=== PATIENT | male | born 1965 | race African-American/Black ===

== ENCOUNTER 2018-05-19 17:25 | Observation (INO) ==
[2018-05-19 18:52] LABS: Basophils % 0.4 % (0.0-0.8); Eosinophils # 0.1 10*3/uL (0.0-0.87); Eosinophils % 0.9 % (0.00-10.9); Hematocrit 36.7 VOL% (42.0-52.0); Hemoglobin 11.6 GM/DL (14.0-18.0); Immature Granulocytes % 0.4 %; Immature Granulocytes Absolute 0.02 #; Lymphocytes # 2.6 10*3/uL (1.4-4.0); Lymphocytes % 47.1 % (21.2-54.2); Mean Corpuscular HGB Conc 31.6 GM/DL (32-36); Mean Corpuscular Hemoglobin 28 PG (27-34); Mean Corpuscular Volume 87.6 FL (87-102); Mean Platelet Volume 10.4 FL (9.6-12.0); Monocytes # 0.6 10*3/uL (0.11-0.8); Monocytes % 9.8 % (1.7-12.7); Neutrophils # 2.3 10*3/uL (1.4-7.4); Neutrophils % 41.4 % (38.7-73.9); Platelet Count 249 T/CUMM (130-400); Red Blood Count 4.19 MC/CUMM (3.8-5.5); Red Cell Distribution Width 14.2 % (9.3-17.3); White Blood Count 5.6 T/CUMM (4-12)
[2018-05-19] MEDS ORDERED: ACETAMINOPHEN 500 MG TABLET PO STA (20:37)
[2018-05-19 20:42] LABS: Alanine Aminotransferase 44 U/L (16-61); Albumin 3.5 G/DL (3.4-5.0); Alkaline Phosphatase 81 U/L (45-117); Aspartate Amino Transferase 20 U/L (0-37); Bilirubin,Total < 0.39 MG/DL (0.2-1.0); Blood Urea Nitrogen 18 MG/DL (7-18); Calcium 8.4 MG/DL (8.5-10.1); Glucose 147 MG/DL (74-106); Osmolality,Calculated 285.3 MOS/KG (273-304); Potassium 3.7 MMOL/L (3.5-5.1); Sodium 141 MMOL/L (136-145); Total Protein 7.3 G/DL (6.4-8.3)
[2018-05-19] MEDS ORDERED: DEXTROSE 50% 25 GM/50 ML VIAL IV PRN (22:15)
[2018-05-19] MEDS ORDERED: GLUCAGON 1 MG VIAL IM PRN (22:15)
[2018-05-19] MEDS ORDERED: MAGNESIUM SULF RIDER 2 GM in PREMIX 1 EACH IV PRN (22:15)
[2018-05-19] MEDS ORDERED: MAGNESIUM SULF RIDER 4 GM in PREMIX 1 EACH IV PRN (22:15)
[2018-05-19] MEDS ORDERED: ONDANSETRON 4 MG/2 ML VIAL IV PRN (22:15)
[2018-05-19] MEDS: DEXTROSE 5% NACL 0.9% 1,000 ML IV SCH (23:53)
[2018-05-20] MEDS: DEXTROSE 5% NACL 0.9% 1,000 ML IV SCH ×2 (07:44→16:55)
[2018-05-20] MEDS ORDERED: NITROGLYCERIN SL 0.4 MG TABLET SL PRN (10:09)
[2018-05-20] MEDS ORDERED: ALUM/MAG/SIMETH/LIDO VISC 1:1 30 ML BOTTLE PO ONE (10:10)
[2018-05-20] MEDS: ASPIRIN EC 81 MG TABLET PO SCH (11:03)
[2018-05-20] MEDS: LISINOPRIL 10 MG TABLET PO SCH (11:03)
[2018-05-20] MEDS: TICAGRELOR 90 MG TABLET PO SCH ×2 (11:03→21:29)
[2018-05-20] MEDS: FAMOTIDINE 20 MG TABLET PO SCH ×2 (11:03→21:29)
[2018-05-20] MEDS ORDERED: DIAZEPAM 5 MG TABLET PO ONE (13:12)
[2018-05-20] MEDS ORDERED: POTASSIUM CHLORIDE RIDER 10 MEQ in PREMIX 1 EACH IV PRN (13:12)
[2018-05-20] MEDS ORDERED: MAGNESIUM SULF RIDER 2 GM in PREMIX 1 EACH IV PRN (13:12)
[2018-05-20] MEDS ORDERED: diphenhydrAMINE CAP 25 MG CAPSULE PO ONE (13:12)
[2018-05-20] MEDS ORDERED: diphenhydrAMINE CAP 50 MG CAPSULE ONE (13:17)
[2018-05-20] MEDS ORDERED: ENOXAPARIN 40 MG/0.4 ML SYRINGE SUBCUT ONE (13:33)
[2018-05-20] MEDS ORDERED: LIDOCAINE 1% 20 ML VIAL ONE (13:53)
[2018-05-20] MEDS ORDERED: MIDAZOLAM 2 MG/2 ML VIAL ONE (13:54)
[2018-05-20] MEDS ORDERED: fentaNYL 100 MCG/2 ML VIAL ONE (13:54)
[2018-05-20] MEDS ORDERED: HEPARIN 5,000 UNIT/1 ML VIAL ONE (14:03)
[2018-05-20] MEDS: GABAPENTIN 300 MG CAPSULE PO SCH ×2 (15:41→21:29)
[2018-05-20] MEDS: HYOSCYAMINE 0.125 MG TABLET SL SCH ×2 (15:41→21:29)
[2018-05-20] MEDS: ACETAMINOPHEN 325 MG TABLET PO SCH ×2 (15:41→21:29)
[2018-05-20] MEDS: PANTOPRAZOLE 20 MG TABLET PO SCH (15:41)
[2018-05-20] MEDS ORDERED: SERTRALINE 25 MG TABLET PO SCH (21:00)
[2018-05-20] MEDS ORDERED: ATORVASTATIN 40 MG TABLET PO SCH (21:00)
[2018-05-20] MEDS ORDERED: SERTRALINE 50 MG TABLET PO SCH (21:00)
[2018-05-20] MEDS: TOPIRAMATE 25 MG TABLET PO SCH (21:29)
[2018-05-20] MEDS: CARVEDILOL 3.125 MG TABLET PO SCH (21:29)
[2018-05-21] MEDS: DEXTROSE 5% NACL 0.9% 1,000 ML IV SCH ×2 (01:57→06:47)
[2018-05-21 05:18] LABS: Basophils % 0.2 % (0.0-0.8); Eosinophils % 0.4 % (0.00-10.9); Immature Granulocytes % 0.4 %; Immature Granulocytes Absolute 0.03 #; Lymphocytes # 2.3 10*3/uL (1.4-4.0); Lymphocytes % 27.4 % (21.2-54.2); Mean Corpuscular HGB Conc 30.6 GM/DL (32-36); Mean Corpuscular Hemoglobin 27 PG (27-34); Mean Corpuscular Volume 88.5 FL (87-102); Mean Platelet Volume 10.7 FL (9.6-12.0); Monocytes # 0.7 10*3/uL (0.11-0.8); Neutrophils # 5.4 10*3/uL (1.4-7.4); Neutrophils % 63.6 % (38.7-73.9); Platelet Count 231 T/CUMM (130-400); Red Blood Count 4.07 MC/CUMM (3.8-5.5); Red Cell Distribution Width 14.4 % (9.3-17.3); White Blood Count 8.5 T/CUMM (4-12)
[2018-05-21] MEDS: HYOSCYAMINE 0.125 MG TABLET SL SCH (08:33)
[2018-05-21] MEDS: ASPIRIN EC 81 MG TABLET PO SCH (08:33)
[2018-05-21] MEDS: LISINOPRIL 10 MG TABLET PO SCH (08:33)
[2018-05-21] MEDS: PANTOPRAZOLE 20 MG TABLET PO SCH (08:33)
[2018-05-21] MEDS: TOPIRAMATE 25 MG TABLET PO SCH (08:33)
[2018-05-21] MEDS: CARVEDILOL 3.125 MG TABLET PO SCH (08:33)
[2018-05-21] MEDS: GABAPENTIN 300 MG CAPSULE PO SCH (08:33)
[2018-05-21] MEDS: TICAGRELOR 90 MG TABLET PO SCH (08:34)
[2018-05-21] MEDS: FAMOTIDINE 20 MG TABLET PO SCH (08:37)
[2018-05-21] MEDS: ACETAMINOPHEN 325 MG TABLET PO SCH (08:37)
[2018-05-21 12:29] VITALS: BP 140/82
== END 2018-05-21 16:31 | disposition home or self-care (01) ==
LOC: N.TELES 17:25 → N.ED 17:25 → N.TELES 23:10
PROVIDERS: ADMIT Family Medicine; ATTEND Family Medicine
PROC: CLCCHCL (ICD-10-PCS; 2018-05-20 13:45)

== ENCOUNTER 2018-08-20 17:25 | Observation (INO) ==
[2018-08-20] MEDS ORDERED: ASPIRIN 325 MG TABLET PO STA (18:09)
[2018-08-20] MEDS ORDERED: ONDANSETRON ODT 4 MG TABLET PO STA (18:09)
[2018-08-20 18:31] LABS: Basophils % 0.6 % (0.0-0.8); Eosinophils # 0.1 10*3/uL (0.0-0.87); Eosinophils % 1.3 % (0.00-10.9); Hematocrit 37.5 VOL% (42.0-52.0); Hemoglobin 11.7 GM/DL (14.0-18.0); Immature Granulocytes % 0.4 %; Immature Granulocytes Absolute 0.02 #; Lymphocytes # 2.5 10*3/uL (1.4-4.0); Lymphocytes % 52.4 % (21.2-54.2); Mean Corpuscular HGB Conc 31.2 GM/DL (32-36); Mean Corpuscular Hemoglobin 28 PG (27-34); Mean Corpuscular Volume 88.7 FL (87-102); Monocytes # 0.4 10*3/uL (0.11-0.8); Monocytes % 8.6 % (1.7-12.7); Neutrophils # 1.7 10*3/uL (1.4-7.4); Neutrophils % 36.7 % (38.7-73.9); Platelet Count 263 T/CUMM (130-400); Red Blood Count 4.23 MC/CUMM (3.8-5.5); Red Cell Distribution Width 14.4 % (9.3-17.3); White Blood Count 4.8 T/CUMM (4-12)
[2018-08-20 18:51] LABS: INR 0.9; Partial Thromboplastin Time 25.9 SECS (0-40)
[2018-08-20 18:56] LABS: Alanine Aminotransferase 43 U/L (16-61); Alkaline Phosphatase 84 U/L (45-117); Aspartate Amino Transferase 22 U/L (0-37); Bilirubin,Total < 0.39 MG/DL (0.2-1.0); Blood Urea Nitrogen 18 MG/DL (7-18); Calcium 8.4 MG/DL (8.5-10.1); Glucose 125 MG/DL (74-106); Osmolality,Calculated 283.3 MOS/KG (273-304); Potassium 3.7 MMOL/L (3.5-5.1); Sodium 141 MMOL/L (136-145); Total Protein 7.4 G/DL (6.4-8.3)
[2018-08-20 19:01] LABS: Lymphocytes 61 % (20-55); Segmented Neutrophils 35 % (50-85); Total Cells Counted 100
[2018-08-20 19:02] LABS: Hypochromasia Slight; Microcytosis Slight; Platelet Estimate Normal
[2018-08-20 19:38] LABS: Barbiturates Screen,Urine Negative (Negative); Benzodiazepines Screen,Urine Negative (Negative); Cannabinoid Screen,Urine Negative (Negative); Opiate Screen,Urine Negative (Negative); Phencyclidine Screen,Urine Negative (Negative)
[2018-08-20] MEDS ORDERED: ATORVASTATIN 40 MG TABLET PO SCH (22:41)
[2018-08-20] MEDS ORDERED: SERTRALINE 50 MG TABLET PO SCH (22:41)
[2018-08-21] MEDS: GABAPENTIN 300 MG CAPSULE PO SCH ×2 (00:24→11:51)
[2018-08-21] MEDS: TICAGRELOR 90 MG TABLET PO SCH ×2 (00:24→11:52)
[2018-08-21] MEDS: FAMOTIDINE 20 MG TABLET PO SCH ×2 (00:25→11:50)
[2018-08-21] MEDS: TOPIRAMATE 25 MG TABLET PO SCH ×2 (00:25→11:51)
[2018-08-21 08:53] VITALS: BP 128/81
[2018-08-21] MEDS ORDERED: ASPIRIN EC 81 MG TABLET PO SCH (09:00)
[2018-08-21] MEDS ORDERED: LISINOPRIL 10 MG TABLET PO SCH (09:00)
[2018-08-21] MEDS ORDERED: CARVEDILOL 3.125 MG TABLET PO SCH (09:00)
== END 2018-08-21 12:11 | disposition home or self-care (01) ==
LOC: N.ED 17:25 → N.EDINP 17:25 → N.TELEN 22:23
PROVIDERS: ADMIT Family Medicine; ATTEND Family Medicine

== ENCOUNTER 2019-01-31 08:53 | Observation (INO) ==
[2019-01-31] MEDS ORDERED: SODIUM CHLORIDE 0.9% 1,000 ML IV STA (09:14)
[2019-01-31 09:56] LABS: INR 0.9; PT Patient Result 10.1 SECS
[2019-01-31 10:02] LABS: Hematocrit 37.1 VOL% (42.0-52.0); Hemoglobin 11.8 GM/DL (14.0-18.0); Mean Corpuscular HGB Conc 31.8 GM/DL (32-36); Mean Corpuscular Volume 87.5 FL (87-102); Red Blood Count 4.24 MC/CUMM (3.8-5.5); Red Cell Distribution Width 14.2 % (9.3-17.3); White Blood Count 3.7 T/CUMM (4-12)
[2019-01-31 10:03] LABS: Basophils % 0.5 % (0.0-0.8); Eosinophils # 0.1 10*3/uL (0.0-0.87); Eosinophils % 1.4 % (0.00-10.9); Immature Granulocytes % 0.3 %; Immature Granulocytes Absolute 0.01 #; Lymphocytes # 1.8 10*3/uL (1.4-4.0); Lymphocytes % 49.3 % (21.2-54.2); Mean Platelet Volume 10.7 FL (9.6-12.0); Monocytes % 8.2 % (1.7-12.7); Neutrophils % 40.3 % (38.7-73.9); Platelet Count 236 T/CUMM (130-400)
[2019-01-31 10:05] LABS: Alanine Aminotransferase 50 U/L (16-61); Albumin 3.5 G/DL (3.4-5.0); Alkaline Phosphatase 89 U/L (45-117); Aspartate Amino Transferase 25 U/L (0-37); Bilirubin,Total < 0.39 MG/DL (0.2-1.0); Blood Urea Nitrogen 18 MG/DL (7-18); Calcium 8.2 MG/DL (8.5-10.1); Glucose 138 MG/DL (74-106); Osmolality,Calculated 289.8 MOS/KG (273-304)
[2019-01-31] MEDS ORDERED: ACETAMINOPHEN 500 MG TABLET PO STA (12:03)
[2019-01-31] MEDS ORDERED: DEXTROSE 50% 25 GM/50 ML VIAL IV PRN (14:13)
[2019-01-31] MEDS ORDERED: NITROGLYCERIN SL 0.4 MG TABLET SL PRN (14:13)
[2019-01-31] MEDS ORDERED: ONDANSETRON 4 MG/2 ML VIAL IV PRN (14:13)
[2019-01-31] MEDS ORDERED: GLUCAGON 1 MG VIAL IM PRN (14:13)
[2019-01-31] MEDS: GABAPENTIN 100 MG CAPSULE PO SCH ×2 (14:35→21:58)
[2019-01-31] MEDS: INSULIN LISPRO 100 UNIT/ML SUBCUT SCH ×2 (15:58→21:58)
[2019-01-31] MEDS: SODIUM CHLORIDE 0.9% 1,000 ML IV SCH (17:21)
[2019-01-31] MEDS: ACETAMINOPHEN 325 MG TABLET PO PRN (19:19)
[2019-01-31 19:45] LABS: Apearance,Urine CLEAR (Clear); Bilirubin,Urine Negative (Negative); Blood, Urine Negative (Negative); Glucose,Urine (UA) Negative (Negative); Hyaline Casts,Urine 1 /LPF (0-3); Ketones,Urine Negative (Negative); Mucus,Urine Occasional /LPF (Occasional); Nitrite,Urine Negative (Negative); Protein,Urine Negative; RBC,Urine 5 /HPF (0-4); Urine Color Yellow (Yellow); Urine Specific Gravity 1.019 (1.001-1.035); Urine Urobilinogen < 2.0 EU/DL (0.2-1.0); WBC,Urine 1 /HPF (0-6)
[2019-01-31] MEDS: LISINOPRIL 10 MG TABLET PO SCH (21:57)
[2019-01-31] MEDS: ATORVASTATIN 40 MG TABLET PO SCH (21:57)
[2019-01-31] MEDS: DOCUSATE SODIUM 100 MG CAPSULE PO SCH (21:57)
[2019-01-31] MEDS: TICAGRELOR 90 MG TABLET PO SCH (21:57)
[2019-01-31] MEDS: CARVEDILOL 3.125 MG TABLET PO SCH (21:57)
[2019-02-01 00:20] LABS: Barbiturates Screen,Urine Negative (Negative); Benzodiazepines Screen,Urine Negative (Negative); Cannabinoid Screen,Urine Negative (Negative); Opiate Screen,Urine Negative (Negative); Phencyclidine Screen,Urine Negative (Negative)
[2019-02-01 04:55] LABS: Basophils % 0.4 % (0.0-0.8); Eosinophils # 0.1 10*3/uL (0.0-0.87); Eosinophils % 2.1 % (0.00-10.9); Hematocrit 36.5 VOL% (42.0-52.0); Hemoglobin 11.1 GM/DL (14.0-18.0); Immature Granulocytes % 0.4 %; Immature Granulocytes Absolute 0.02 #; Lymphocytes # 2.6 10*3/uL (1.4-4.0); Lymphocytes % 55.2 % (21.2-54.2); Mean Corpuscular HGB Conc 30.4 GM/DL (32-36); Mean Corpuscular Volume 89.7 FL (87-102); Mean Platelet Volume 11.1 FL (9.6-12.0); Neutrophils % 31.9 % (38.7-73.9); Platelet Count 227 T/CUMM (130-400); Red Blood Count 4.07 MC/CUMM (3.8-5.5); Red Cell Distribution Width 14.1 % (9.3-17.3); White Blood Count 4.7 T/CUMM (4-12)
[2019-02-01 05:17] LABS: Calcium 8.2 MG/DL (8.5-10.1); Osmolality,Calculated 289.7 MOS/KG (273-304)
[2019-02-01 05:41] LABS: Band Neutrophils 2 % (0-10); Eosinophils 1 % (0-10); Lymphocytes 63 % (20-55); Segmented Neutrophils 27 % (50-85)
[2019-02-01 05:42] LABS: Platelet Estimate Adequate; Total Cells Counted 100
[2019-02-01 08:38] LABS: Troponin I < 0.015 NG/ML (0.00-0.045)
[2019-02-01] MEDS ORDERED: SERTRALINE 25 MG TABLET PO SCH (09:00)
[2019-02-01] MEDS ORDERED: NON-FORMULARY MEDICATION (Omeprazole 20 MG) PO SCH (09:00)
[2019-02-01] MEDS: INSULIN LISPRO 100 UNIT/ML SUBCUT SCH ×4 (09:23→21:06)
[2019-02-01] MEDS: SODIUM CHLORIDE 0.9% 1,000 ML IV SCH ×2 (09:56)
[2019-02-01] MEDS: ASPIRIN EC 81 MG TABLET PO SCH (09:57)
[2019-02-01] MEDS: PANTOPRAZOLE 40 MG TABLET PO SCH (09:57)
[2019-02-01] MEDS: DOCUSATE SODIUM 100 MG CAPSULE PO SCH ×2 (09:57→20:59)
[2019-02-01] MEDS: TICAGRELOR 90 MG TABLET PO SCH ×2 (09:57→21:05)
[2019-02-01] MEDS: CARVEDILOL 3.125 MG TABLET PO SCH ×2 (09:57→20:59)
[2019-02-01] MEDS: GABAPENTIN 100 MG CAPSULE PO SCH ×3 (09:58→21:05)
[2019-02-01] MEDS: LISINOPRIL 10 MG TABLET PO SCH (09:58)
[2019-02-01 10:56] LABS: Troponin I < 0.015 NG/ML (0.00-0.045)
[2019-02-01] MEDS ORDERED: LISINOPRIL 10 MG TABLET PO ONE (12:01)
[2019-02-01] MEDS ORDERED: MAGNESIUM HYDROXIDE SUSP 30 ML UDCUP PO PRN (12:29)
[2019-02-01] MEDS: LISINOPRIL 20 MG TABLET PO SCH (20:57)
[2019-02-01] MEDS: ATORVASTATIN 40 MG TABLET PO SCH (20:59)
[2019-02-01] MEDS: buPROPion 75 MG TABLET PO SCH (21:03)
[2019-02-02 06:19] LABS: Basophils % 0.7 % (0.0-0.8); Eosinophils # 0.1 10*3/uL (0.0-0.87); Eosinophils % 1.1 % (0.00-10.9); Hematocrit 36.5 VOL% (42.0-52.0); Hemoglobin 11.7 GM/DL (14.0-18.0); Immature Granulocytes % 0.2 %; Immature Granulocytes Absolute 0.01 #; Mean Corpuscular HGB Conc 32.1 GM/DL (32-36); Mean Corpuscular Volume 88.2 FL (87-102); Mean Platelet Volume 11.4 FL (9.6-12.0); Monocytes % 7.7 % (1.7-12.7); Neutrophils % 46.3 % (38.7-73.9); Platelet Count 247 T/CUMM (130-400); Red Blood Count 4.14 MC/CUMM (3.8-5.5); Red Cell Distribution Width 14.2 % (9.3-17.3); White Blood Count 4.4 T/CUMM (4-12)
[2019-02-02 06:40] LABS: Calcium 8.6 MG/DL (8.5-10.1); Osmolality,Calculated 287.1 MOS/KG (273-304)
[2019-02-02] MEDS: ACETAMINOPHEN 325 MG TABLET PO PRN (06:53)
[2019-02-02] MEDS: INSULIN LISPRO 100 UNIT/ML SUBCUT SCH ×2 (08:39→11:08)
[2019-02-02] MEDS: GABAPENTIN 100 MG CAPSULE PO SCH (10:01)
[2019-02-02] MEDS: LISINOPRIL 20 MG TABLET PO SCH (10:01)
[2019-02-02] MEDS: buPROPion 75 MG TABLET PO SCH (10:02)
[2019-02-02] MEDS: ASPIRIN EC 81 MG TABLET PO SCH (10:02)
[2019-02-02] MEDS: CARVEDILOL 3.125 MG TABLET PO SCH (10:02)
[2019-02-02] MEDS: TICAGRELOR 90 MG TABLET PO SCH (10:02)
[2019-02-02] MEDS: PANTOPRAZOLE 40 MG TABLET PO SCH (10:02)
[2019-02-02] MEDS: DOCUSATE SODIUM 100 MG CAPSULE PO SCH (10:02)
[2019-02-02 11:45] VITALS: BP 139/85
== END 2019-02-02 12:45 | disposition home health service (06) ==
LOC: N.EDINP 08:53 → N.ED 08:53 → N.TELES 13:11
PROVIDERS: ADMIT Family Medicine; ATTEND Family Medicine

== ENCOUNTER 2019-07-18 05:28 | Inpatient (IN) ==
[2019-07-11 14:17] LABS: Basophils % 0.5 % (0.0-0.8); Eosinophils # 0.1 10*3/uL (0.0-0.87); Hemoglobin 12.9 GM/DL (14.0-18.0); Immature Granulocytes % 0.5 %; Immature Granulocytes Absolute 0.02 #; Lymphocytes # 1.6 10*3/uL (1.4-4.0); Mean Corpuscular HGB Conc 32.3 GM/DL (32-36); Mean Corpuscular Volume 86.8 FL (87-102); Mean Platelet Volume 9.9 FL (9.6-12.0); Monocytes % 9.3 % (1.7-12.7); Neutrophils % 51.7 % (38.7-73.9); Platelet Count 249 T/CUMM (130-400); Red Blood Count 4.61 MC/CUMM (3.8-5.5); White Blood Count 4.4 T/CUMM (4-12)
[2019-07-11 14:21] LABS: Apearance,Urine CLEAR (Clear); Bilirubin,Urine Negative (Negative); Blood, Urine Negative (Negative); Glucose,Urine (UA) Negative (Negative); Ketones,Urine Negative (Negative); Mucus,Urine Occasional /LPF (Occasional); Nitrite,Urine Negative (Negative); Protein,Urine Negative; RBC,Urine 1 /HPF (0-4); Urine Color Yellow (Yellow); Urine Specific Gravity 1.015 (1.001-1.035); Urine Urobilinogen < 2.0 EU/DL (0.2-1.0)
[2019-07-11 14:25] LABS: INR 0.9; PT Patient Result 9.8 SECS (9.6-12.2); Partial Thromboplastin Time 25.4 SECS (20.8-36.0)
[2019-07-11 14:41] LABS: Alanine Aminotransferase 45 U/L (16-61); Albumin 3.7 G/DL (3.4-5.0); Alkaline Phosphatase 84 U/L (45-117); Aspartate Amino Transferase 18 U/L (0-37); Bilirubin,Total < 0.39 MG/DL (0.2-1.0); Blood Urea Nitrogen 15 MG/DL (7-18); Calcium 8.2 MG/DL (8.5-10.1); Estimated Glom Filtration Rate 92 ML/MIN; Glucose 159 MG/DL (74-106); Osmolality,Calculated 284.3 MOS/KG (273-304); Total Protein 7.5 G/DL (6.4-8.3)
[2019-07-18] MEDS ORDERED: VANCOMYCIN 1,000 MG VIAL ONE (05:52)
[2019-07-18] MEDS ORDERED: CLINDAMYCIN INJ 50 ML IV ONE (05:52)
[2019-07-18] MEDS ORDERED: LIDOCAINE 1% 5 ML VIAL ONE (06:03)
[2019-07-18] MEDS ORDERED: ROPIVACAINE 0.5% 30 ML VIAL ONE (06:03)
[2019-07-18] MEDS ORDERED: DEXAMETHASONE 4 MG/1 ML VIAL ONE (06:03)
[2019-07-18] MEDS ORDERED: MIDAZOLAM 2 MG/2 ML VIAL ONE (06:03)
[2019-07-18] MEDS ORDERED: NITROGLYCERIN SL 0.4 MG TABLET SL ONE (06:08)
[2019-07-18] MEDS ORDERED: ACETAMINOPHEN 500 MG TABLET PO ONE (06:25)
[2019-07-18] MEDS ORDERED: GABAPENTIN 400 MG CAPSULE PO ONE (06:25)
[2019-07-18] MEDS ORDERED: GABAPENTIN 400 MG CAPSULE ONE (06:27)
[2019-07-18] MEDS ORDERED: ACETAMINOPHEN 500 MG TABLET ONE (06:27)
[2019-07-18] MEDS ORDERED: CLINDAMYCIN INJ 900 MG in PREMIX 1 EACH IV ONE (06:30)
[2019-07-18] MEDS ORDERED: VANCOMYCIN INJ 1,000 MG in SODIUM CHLORIDE 0.9% 250 ML IV ONE (06:30)
[2019-07-18] MEDS ORDERED: LACTATED RINGERS 1,000 ML IV SCH (06:30)
[2019-07-18] MEDS ORDERED: BISACODYL 10 MG SUPP RECTAL PRN (06:59)
[2019-07-18] MEDS ORDERED: LACTULOSE 20 GM/30 ML UDCUP PO PRN (06:59)
[2019-07-18] MEDS ORDERED: MORPHINE 4 MG/1 ML VIAL IV PRN (06:59)
[2019-07-18] MEDS ORDERED: PROMETHAZINE 25 MG/1 ML VIAL IM PRN (06:59)
[2019-07-18] MEDS ORDERED: ONDANSETRON 4 MG/2 ML VIAL IV PRN (06:59)
[2019-07-18] MEDS ORDERED: diphenhydrAMINE CAP 25 MG CAPSULE PO PRN (06:59)
[2019-07-18] MEDS ORDERED: MAGNESIUM HYDROXIDE SUSP 30 ML UDCUP PO PRN (06:59)
[2019-07-18] MEDS ORDERED: TEMAZEPAM 7.5 MG CAPSULE PO PRN (06:59)
[2019-07-18] MEDS ORDERED: METOCLOPRAMIDE 5 MG TABLET PO PRN (07:02)
[2019-07-18] MEDS ORDERED: NITROGLYCERIN SL 0.4 MG TABLET SL PRN (07:02)
[2019-07-18] MEDS ORDERED: oxyCODONE IR 5 MG TABLET PO PRN (07:03)
[2019-07-18] MEDS ORDERED: ACETAMINOPHEN 325 MG TABLET PO PRN (07:04)
[2019-07-18] MEDS ORDERED: propofoL 200 MG/20 ML VIAL IV ONE (08:57)
[2019-07-18] MEDS ORDERED: GLYCOPYRROLATE 0.4 MG/2 ML VIAL ONE (08:58)
[2019-07-18] MEDS ORDERED: PHENYLEPHRINE 1 MG/10 ML SYRINGE IV ONE (08:58)
[2019-07-18] MEDS ORDERED: fentaNYL 100 MCG/2 ML VIAL ONE (08:58)
[2019-07-18] MEDS ORDERED: TRANEXAMIC ACID 1,000 MG/10 ML VIAL ONE (08:58)
[2019-07-18] MEDS ORDERED: ONDANSETRON 4 MG/2 ML VIAL ONE (08:58)
[2019-07-18] MEDS ORDERED: LACTATED RINGERS 1,000 ML IV ONE (08:58)
[2019-07-18] MEDS ORDERED: LIDOCAINE 2% 5 ML VIAL ONE (08:58)
[2019-07-18] MEDS ORDERED: INFLUENZA VIRUS VACCINE 0.5 ML SYRINGE IM ONE (10:19)
[2019-07-18] MEDS: buPROPion 75 MG TABLET PO SCH ×2 (10:50→20:33)
[2019-07-18] MEDS: lisinopriL 10 MG TABLET PO SCH (10:50)
[2019-07-18] MEDS: ASPIRIN EC 81 MG TABLET PO SCH (10:51)
[2019-07-18] MEDS: TICAGRELOR 90 MG TABLET PO SCH ×2 (10:51→20:32)
[2019-07-18] MEDS: carvediloL 3.125 MG TABLET PO SCH ×2 (10:51→20:33)
[2019-07-18] MEDS: DOCUSATE SODIUM 100 MG CAPSULE PO SCH ×2 (10:51→20:32)
[2019-07-18] MEDS: ACETAMINOPHEN 325 MG TABLET PO PRN ×2 (11:35→20:35)
[2019-07-18] MEDS: INSULIN REGULAR 100 UNIT/ML SUBCUT SCH ×2 (12:43→18:29)
[2019-07-18] MEDS: CLINDAMYCIN INJ 900 MG in PREMIX 1 EACH IV SCH ×2 (14:11→22:33)
[2019-07-18] MEDS: MORPHINE 4 MG/1 ML VIAL IV PRN ×3 (14:46→23:20)
[2019-07-18] MEDS: FONDAPARINUX 2.5 MG/0.5 ML SYRINGE SUBCUT SCH (20:32)
[2019-07-18] MEDS: ATORVASTATIN 40 MG TABLET PO SCH (20:33)
[2019-07-18] MEDS: oxyCODONE IR 5 MG TABLET PO PRN (20:35)
[2019-07-19] MEDS: oxyCODONE IR 5 MG TABLET PO PRN ×2 (03:10→08:43)
[2019-07-19 05:53] LABS: Basophils % 0.1 % (0.0-0.8); Hematocrit 35.4 VOL% (42.0-52.0); Hemoglobin 11.1 GM/DL (14.0-18.0); Immature Granulocytes % 0.6 %; Immature Granulocytes Absolute 0.06 #; Lymphocytes % 19.3 % (21.2-54.2); Mean Corpuscular HGB Conc 31.4 GM/DL (32-36); Mean Corpuscular Volume 87.8 FL (87-102); Mean Platelet Volume 10.4 FL (9.6-12.0); Monocytes % 6.2 % (1.7-12.7); Neutrophils % 73.8 % (38.7-73.9); Platelet Count 218 T/CUMM (130-400); Red Blood Count 4.03 MC/CUMM (3.8-5.5); Red Cell Distribution Width 14.2 % (9.3-17.3); White Blood Count 10.5 T/CUMM (4-12)
[2019-07-19 06:07] LABS: Calcium 8.4 MG/DL (8.5-10.1); Osmolality,Calculated 276.8 MOS/KG (273-304)
[2019-07-19] MEDS: INSULIN REGULAR 100 UNIT/ML SUBCUT SCH ×3 (08:42→16:20)
[2019-07-19] MEDS: TICAGRELOR 90 MG TABLET PO SCH ×2 (09:07→20:27)
[2019-07-19] MEDS: carvediloL 3.125 MG TABLET PO SCH ×2 (09:07→20:27)
[2019-07-19] MEDS: ASPIRIN EC 81 MG TABLET PO SCH (09:07)
[2019-07-19] MEDS: lisinopriL 10 MG TABLET PO SCH (09:07)
[2019-07-19] MEDS: buPROPion 75 MG TABLET PO SCH ×2 (09:08→20:27)
[2019-07-19] MEDS: PANTOPRAZOLE 40 MG TABLET PO SCH (09:08)
[2019-07-19] MEDS: DOCUSATE SODIUM 100 MG CAPSULE PO SCH ×2 (09:08→20:26)
[2019-07-19] MEDS: MORPHINE 4 MG/1 ML VIAL IV PRN ×3 (10:52→19:39)
[2019-07-19] MEDS ORDERED: KETOROLAC 30 MG/1 ML VIAL IV ONE (13:08)
[2019-07-19] MEDS: KETOROLAC 10 MG TABLET PO PRN (20:26)
[2019-07-19] MEDS: FONDAPARINUX 2.5 MG/0.5 ML SYRINGE SUBCUT SCH (20:27)
[2019-07-19] MEDS: ATORVASTATIN 40 MG TABLET PO SCH (20:27)
[2019-07-20] MEDS: MORPHINE 4 MG/1 ML VIAL IV PRN ×3 (05:01→19:57)
[2019-07-20] MEDS: INSULIN REGULAR 100 UNIT/ML SUBCUT SCH ×3 (07:46→15:54)
[2019-07-20] MEDS ORDERED: carvediloL 3.125 MG TABLET PO ONE (09:31)
[2019-07-20] MEDS: TICAGRELOR 90 MG TABLET PO SCH ×2 (09:40→20:01)
[2019-07-20] MEDS: DOCUSATE SODIUM 100 MG CAPSULE PO SCH ×2 (09:40→20:01)
[2019-07-20] MEDS: PANTOPRAZOLE 40 MG TABLET PO SCH (09:40)
[2019-07-20] MEDS: buPROPion 75 MG TABLET PO SCH ×2 (09:40→20:01)
[2019-07-20] MEDS: lisinopriL 10 MG TABLET PO SCH (09:41)
[2019-07-20] MEDS: ASPIRIN EC 81 MG TABLET PO SCH (09:41)
[2019-07-20] MEDS: carvediloL 3.125 MG TABLET PO SCH (12:12)
[2019-07-20] MEDS: FONDAPARINUX 2.5 MG/0.5 ML SYRINGE SUBCUT SCH (19:57)
[2019-07-20] MEDS: KETOROLAC 10 MG TABLET PO PRN (20:01)
[2019-07-20] MEDS: ATORVASTATIN 40 MG TABLET PO SCH (20:01)
[2019-07-20] MEDS: carvediloL 6.25 MG TABLET PO SCH (20:03)
[2019-07-21] MEDS: MORPHINE 4 MG/1 ML VIAL IV PRN (07:41)
[2019-07-21] MEDS: INSULIN REGULAR 100 UNIT/ML SUBCUT SCH ×2 (08:08→13:32)
[2019-07-21] MEDS: PANTOPRAZOLE 40 MG TABLET PO SCH (09:14)
[2019-07-21] MEDS: ASPIRIN EC 81 MG TABLET PO SCH (09:15)
[2019-07-21] MEDS: carvediloL 6.25 MG TABLET PO SCH (09:15)
[2019-07-21] MEDS: lisinopriL 10 MG TABLET PO SCH (09:15)
[2019-07-21] MEDS: TICAGRELOR 90 MG TABLET PO SCH (09:15)
[2019-07-21] MEDS: DOCUSATE SODIUM 100 MG CAPSULE PO SCH (09:15)
[2019-07-21] MEDS: buPROPion 75 MG TABLET PO SCH (09:16)
[2019-07-21 11:41] VITALS: BP 123/84
== END 2019-07-21 13:30 | disposition home health service (06) | DRG 470 ==
LOC: N.OR 05:28 → N.SDSINP 05:28 → N.3E 10:00
PROVIDERS: ADMIT Orthopaedic Surgery; ATTEND Orthopaedic Surgery

== ENCOUNTER 2019-07-28 13:40 | Inpatient (IN) ==
[2019-07-28] MEDS ORDERED: NITROGLYCERIN SL 0.4 MG TABLET SL PRN ×2 (14:07→16:34)
[2019-07-28] MEDS ORDERED: SODIUM CHLORIDE 0.9% 1,000 ML IV STA (14:17)
[2019-07-28 14:23] LABS: Basophils % 0.5 % (0.0-0.8); Eosinophils % 0.3 % (0.00-10.9); Hematocrit 31.6 VOL% (42.0-52.0); Hemoglobin 10.1 GM/DL (14.0-18.0); Immature Granulocytes % 0.9 %; Immature Granulocytes Absolute 0.07 #; Lymphocytes # 1.7 10*3/uL (1.4-4.0); Lymphocytes % 21.9 % (21.2-54.2); Mean Corpuscular Volume 85.9 FL (87-102); Mean Platelet Volume 9.9 FL (9.6-12.0); Monocytes % 7.7 % (1.7-12.7); Neutrophils % 68.7 % (38.7-73.9); Platelet Count 606 T/CUMM (130-400); Red Blood Count 3.68 MC/CUMM (3.8-5.5); Red Cell Distribution Width 13.2 % (9.3-17.3); White Blood Count 7.8 T/CUMM (4-12)
[2019-07-28 14:46] LABS: Calcium 8.8 MG/DL (8.5-10.1); Osmolality,Calculated 266.7 MOS/KG (273-304)
[2019-07-28] MEDS: ASPIRIN 325 MG TABLET PO STA ×2 (14:46→14:47)
[2019-07-28 14:52] LABS: Apearance,Urine CLEAR (Clear); Bilirubin,Urine Negative (Negative); Blood, Urine Negative (Negative); Glucose,Urine (UA) Negative (Negative); Hyaline Casts,Urine 1 /LPF (0-3); Ketones,Urine Negative (Negative); Mucus,Urine Occasional /LPF (Occasional); Nitrite,Urine Negative (Negative); Protein,Urine Negative; RBC,Urine 1 /HPF (0-4); Urine Color Yellow (Yellow); Urine Specific Gravity 1.015 (1.001-1.035); Urine Urobilinogen < 2.0 EU/DL (0.2-1.0); WBC,Urine 1 /HPF (0-6)
[2019-07-28 15:31] LABS: Barbiturates Screen,Urine Negative (Negative); Benzodiazepines Screen,Urine Negative (Negative); Cannabinoid Screen,Urine Negative (Negative); Opiate Screen,Urine Negative (Negative); Phencyclidine Screen,Urine Negative (Negative)
[2019-07-28] MEDS ORDERED: ENOXAPARIN 100 MG/ML SYRINGE SUBCUT STA (16:16)
[2019-07-28] MEDS ORDERED: GLUCAGON 1 MG VIAL IM PRN (16:29)
[2019-07-28] MEDS ORDERED: ONDANSETRON 4 MG/2 ML VIAL IV PRN (16:29)
[2019-07-28] MEDS ORDERED: ACETAMINOPHEN 325 MG TABLET PO PRN (16:29)
[2019-07-28] MEDS ORDERED: DEXTROSE 10% 250 ML BAG IV PRN (16:29)
[2019-07-28] MEDS: SODIUM CHLORIDE 0.45% 1,000 ML IV SCH (18:20)
[2019-07-28] MEDS: TICAGRELOR 90 MG TABLET PO SCH (21:39)
[2019-07-28] MEDS: INSULIN LISPRO 100 UNIT/ML SUBCUT SCH (21:39)
[2019-07-28] MEDS: ATORVASTATIN 20 MG TABLET PO SCH (21:39)
[2019-07-28] MEDS: DOCUSATE SODIUM 100 MG CAPSULE PO SCH (21:39)
[2019-07-28] MEDS: carvediloL 3.125 MG TABLET PO SCH (21:39)
[2019-07-28] MEDS: buPROPion 75 MG TABLET PO SCH (21:41)
[2019-07-28] MEDS: MORPHINE 4 MG/1 ML VIAL IV PRN (22:55)
[2019-07-29] MEDS: ENOXAPARIN 100 MG/ML SYRINGE SUBCUT SCH ×2 (02:38→14:46)
[2019-07-29] MEDS: SODIUM CHLORIDE 0.45% 1,000 ML IV SCH ×3 (02:38→16:43)
[2019-07-29 05:39] LABS: Basophils % 0.5 % (0.0-0.8); Eosinophils # 0.2 10*3/uL (0.0-0.87); Eosinophils % 1.9 % (0.00-10.9); Hemoglobin 9.4 GM/DL (14.0-18.0); Immature Granulocytes % 0.9 %; Immature Granulocytes Absolute 0.07 #; Mean Corpuscular HGB Conc 31.3 GM/DL (32-36); Mean Corpuscular Volume 86.7 FL (87-102); Mean Platelet Volume 9.6 FL (9.6-12.0); Monocytes % 9.3 % (1.7-12.7); Neutrophils % 48.4 % (38.7-73.9); Platelet Count 564 T/CUMM (130-400); Red Blood Count 3.46 MC/CUMM (3.8-5.5); Red Cell Distribution Width 13.3 % (9.3-17.3); White Blood Count 7.7 T/CUMM (4-12)
[2019-07-29] MEDS ORDERED: GLUCAGON 1 MG VIAL IM PRN (08:25)
[2019-07-29] MEDS ORDERED: DEXTROSE 50% 25 GM/50 ML VIAL IV PRN (08:25)
[2019-07-29] MEDS: INSULIN LISPRO 100 UNIT/ML SUBCUT SCH ×4 (09:02→22:03)
[2019-07-29] MEDS: buPROPion 75 MG TABLET PO SCH ×2 (09:03→22:02)
[2019-07-29] MEDS: MORPHINE 4 MG/1 ML VIAL IV PRN (09:03)
[2019-07-29] MEDS: lisinopriL 10 MG TABLET PO SCH (09:06)
[2019-07-29] MEDS: DOCUSATE SODIUM 100 MG CAPSULE PO SCH ×2 (09:06→22:03)
[2019-07-29] MEDS: ASPIRIN EC 81 MG TABLET PO SCH (09:07)
[2019-07-29] MEDS: carvediloL 3.125 MG TABLET PO SCH ×2 (09:07→16:44)
[2019-07-29] MEDS: TICAGRELOR 90 MG TABLET PO SCH ×2 (09:07→22:03)
[2019-07-29] MEDS: PANTOPRAZOLE 40 MG TABLET PO SCH (09:07)
[2019-07-29] MEDS ORDERED: MORPHINE 4 MG/1 ML VIAL IV PRN (11:34)
[2019-07-29] MEDS: oxyCODONE/ACETAMINOPHEN 5-325 MG TABLET PO PRN ×2 (11:41→22:04)
[2019-07-29 12:20] LABS: Alanine Aminotransferase 37 U/L (16-61); Albumin 3.2 G/DL (3.4-5.0); Alkaline Phosphatase 82 U/L (45-117); Aspartate Amino Transferase 21 U/L (0-37); Bilirubin,Total < 0.39 MG/DL (0.2-1.0); Blood Urea Nitrogen 23 MG/DL (7-18); Calcium 8.8 MG/DL (8.5-10.1); Estimated Glom Filtration Rate 100 ML/MIN; Glucose 107 MG/DL (74-106); Osmolality,Calculated 273.1 MOS/KG (273-304); Total Protein 7.7 G/DL (6.4-8.3)
[2019-07-29] MEDS: ATORVASTATIN 20 MG TABLET PO SCH (22:02)
[2019-07-30] MEDS: ENOXAPARIN 100 MG/ML SYRINGE SUBCUT SCH (02:19)
[2019-07-30 04:40] LABS: Basophils % 0.6 % (0.0-0.8); Eosinophils # 0.1 10*3/uL (0.0-0.87); Eosinophils % 1.6 % (0.00-10.9); Hematocrit 29.3 VOL% (42.0-52.0); Immature Granulocytes Absolute 0.07 #; Lymphocytes # 2.7 10*3/uL (1.4-4.0); Lymphocytes % 41.1 % (21.2-54.2); Mean Corpuscular HGB Conc 30.7 GM/DL (32-36); Mean Platelet Volume 9.4 FL (9.6-12.0); Monocytes % 8.1 % (1.7-12.7); Neutrophils % 47.6 % (38.7-73.9); Platelet Count 576 T/CUMM (130-400); Red Blood Count 3.33 MC/CUMM (3.8-5.5); Red Cell Distribution Width 13.3 % (9.3-17.3); White Blood Count 6.7 T/CUMM (4-12)
[2019-07-30 04:42] LABS: Calcium 8.8 MG/DL (8.5-10.1); Osmolality,Calculated 275.8 MOS/KG (273-304)
[2019-07-30] MEDS: SODIUM CHLORIDE 0.45% 1,000 ML IV SCH ×2 (06:37→10:36)
[2019-07-30] MEDS: INSULIN LISPRO 100 UNIT/ML SUBCUT SCH ×4 (08:31→21:09)
[2019-07-30] MEDS: lisinopriL 10 MG TABLET PO SCH (08:50)
[2019-07-30] MEDS: oxyCODONE/ACETAMINOPHEN 5-325 MG TABLET PO PRN ×2 (08:50→17:17)
[2019-07-30] MEDS: ASPIRIN EC 81 MG TABLET PO SCH (08:50)
[2019-07-30] MEDS: PANTOPRAZOLE 40 MG TABLET PO SCH (08:51)
[2019-07-30] MEDS: carvediloL 3.125 MG TABLET PO SCH ×2 (08:51→17:17)
[2019-07-30] MEDS: DOCUSATE SODIUM 100 MG CAPSULE PO SCH ×2 (08:51→21:07)
[2019-07-30] MEDS: buPROPion 75 MG TABLET PO SCH ×2 (10:03→21:13)
[2019-07-30] MEDS: TICAGRELOR 90 MG TABLET PO SCH ×2 (10:03→21:14)
[2019-07-30] MEDS: APIXABAN 5 MG TABLET PO SCH (21:07)
[2019-07-30] MEDS: ATORVASTATIN 20 MG TABLET PO SCH (21:07)
[2019-07-31] MEDS: oxyCODONE/ACETAMINOPHEN 5-325 MG TABLET PO PRN ×3 (01:34→21:00)
[2019-07-31 07:51] LABS: Basophils # 0.1 10*3/uL (0.0-0.2); Basophils % 0.7 % (0.0-0.8); Eosinophils # 0.1 10*3/uL (0.0-0.87); Eosinophils % 1.4 % (0.00-10.9); Hematocrit 31.6 VOL% (42.0-52.0); Hemoglobin 9.8 GM/DL (14.0-18.0); Immature Granulocytes % 0.5 %; Immature Granulocytes Absolute 0.04 #; Lymphocytes # 2.4 10*3/uL (1.4-4.0); Lymphocytes % 33.1 % (21.2-54.2); Mean Platelet Volume 9.3 FL (9.6-12.0); Monocytes % 7.4 % (1.7-12.7); Neutrophils % 56.9 % (38.7-73.9); Platelet Count 641 T/CUMM (130-400); Red Blood Count 3.59 MC/CUMM (3.8-5.5); Red Cell Distribution Width 13.4 % (9.3-17.3); White Blood Count 7.3 T/CUMM (4-12)
[2019-07-31 08:16] LABS: Calcium 9.4 MG/DL (8.5-10.1)
[2019-07-31] MEDS: INSULIN LISPRO 100 UNIT/ML SUBCUT SCH ×4 (08:42→22:13)
[2019-07-31] MEDS: PANTOPRAZOLE 40 MG TABLET PO SCH (09:39)
[2019-07-31] MEDS: TICAGRELOR 90 MG TABLET PO SCH (09:40)
[2019-07-31] MEDS: DOCUSATE SODIUM 100 MG CAPSULE PO SCH ×2 (09:40→20:59)
[2019-07-31] MEDS: APIXABAN 5 MG TABLET PO SCH ×2 (09:41→21:00)
[2019-07-31] MEDS: lisinopriL 10 MG TABLET PO SCH (09:41)
[2019-07-31] MEDS: buPROPion 75 MG TABLET PO SCH ×2 (09:42→21:00)
[2019-07-31] MEDS: carvediloL 3.125 MG TABLET PO SCH ×2 (09:42→17:53)
[2019-07-31] MEDS: ASPIRIN EC 81 MG TABLET PO SCH (17:53)
[2019-07-31] MEDS: ATORVASTATIN 20 MG TABLET PO SCH (21:00)
[2019-08-01 05:05] LABS: Basophils % 0.5 % (0.0-0.8); Eosinophils # 0.2 10*3/uL (0.0-0.87); Eosinophils % 2.8 % (0.00-10.9); Hematocrit 31.3 VOL% (42.0-52.0); Hemoglobin 9.7 GM/DL (14.0-18.0); Immature Granulocytes % 0.7 %; Immature Granulocytes Absolute 0.05 #; Lymphocytes % 38.9 % (21.2-54.2); Mean Corpuscular Volume 87.7 FL (87-102); Mean Platelet Volume 9.4 FL (9.6-12.0); Monocytes % 6.6 % (1.7-12.7); Neutrophils % 50.5 % (38.7-73.9); Platelet Count 648 T/CUMM (130-400); Red Blood Count 3.57 MC/CUMM (3.8-5.5); Red Cell Distribution Width 13.2 % (9.3-17.3); White Blood Count 7.6 T/CUMM (4-12)
[2019-08-01 05:30] LABS: Calcium 9.5 MG/DL (8.5-10.1); Osmolality,Calculated 272.2 MOS/KG (273-304)
[2019-08-01] MEDS: INSULIN LISPRO 100 UNIT/ML SUBCUT SCH ×4 (08:00→20:51)
[2019-08-01] MEDS: oxyCODONE/ACETAMINOPHEN 5-325 MG TABLET PO PRN (08:10)
[2019-08-01] MEDS: ASPIRIN EC 81 MG TABLET PO SCH (08:10)
[2019-08-01] MEDS: APIXABAN 5 MG TABLET PO SCH ×2 (08:11→20:49)
[2019-08-01] MEDS: lisinopriL 10 MG TABLET PO SCH (08:11)
[2019-08-01] MEDS: carvediloL 3.125 MG TABLET PO SCH ×2 (08:12→17:16)
[2019-08-01] MEDS: PANTOPRAZOLE 40 MG TABLET PO SCH (08:12)
[2019-08-01] MEDS: buPROPion 75 MG TABLET PO SCH ×2 (08:12→20:48)
[2019-08-01] MEDS: DOCUSATE SODIUM 100 MG CAPSULE PO SCH ×2 (08:12→20:51)
[2019-08-01] MEDS ORDERED: POLYETHYLENE GLYCOL POWDER 17 GM PACK PO PRN (13:16)
[2019-08-01] MEDS ORDERED: DOCUSATE SODIUM 100 MG CAPSULE PO PRN (13:17)
[2019-08-01] MEDS ORDERED: SODIUM CHLORIDE 0.9% 250 ML IV ONE (14:29)
[2019-08-01 15:43] LABS: ABG HCO3 24.4 MMOL/L (20-26); ABG Oxygen Saturation 96.8 % (95-100); ABG PCO2 44.6 MM HG (35-48); ABG PH 7.367 (7.35-7.45); ABG PO2 92.2 MM HG (80-95); ABG TCO2 23.3 MMOL/L (23-27); Allen Test Positive
[2019-08-01 16:01] LABS: Basophils % 0.4 % (0.0-0.8); Eosinophils # 0.1 10*3/uL (0.0-0.87); Eosinophils % 0.9 % (0.00-10.9); Hematocrit 32.1 VOL% (42.0-52.0); Hemoglobin 9.9 GM/DL (14.0-18.0); Immature Granulocytes % 0.7 %; Immature Granulocytes Absolute 0.05 #; Lymphocytes # 1.8 10*3/uL (1.4-4.0); Lymphocytes % 26.3 % (21.2-54.2); Mean Corpuscular HGB Conc 30.8 GM/DL (32-36); Mean Corpuscular Volume 88.2 FL (87-102); Mean Platelet Volume 9.4 FL (9.6-12.0); Monocytes % 3.8 % (1.7-12.7); Neutrophils % 67.9 % (38.7-73.9); Platelet Count 601 T/CUMM (130-400); Red Blood Count 3.64 MC/CUMM (3.8-5.5); Red Cell Distribution Width 13.5 % (9.3-17.3); White Blood Count 6.8 T/CUMM (4-12)
[2019-08-01 16:35] LABS: Alanine Aminotransferase 49 U/L (16-61); Albumin 3.2 G/DL (3.4-5.0); Alkaline Phosphatase 72 U/L (45-117); Aspartate Amino Transferase 23 U/L (0-37); Bilirubin,Total < 0.39 MG/DL (0.2-1.0); Blood Urea Nitrogen 29 MG/DL (7-18); Calcium 9.3 MG/DL (8.5-10.1); Estimated Glom Filtration Rate 43 ML/MIN; Glucose 151 MG/DL (74-106); Total Protein 7.6 G/DL (6.4-8.3)
[2019-08-01] MEDS ORDERED: SODIUM CHLORIDE 0.9% 1,000 ML IV SCH (18:30)
[2019-08-01] MEDS: ATORVASTATIN 20 MG TABLET PO SCH (20:49)
[2019-08-02] MEDS: oxyCODONE/ACETAMINOPHEN 5-325 MG TABLET PO PRN ×2 (01:10→09:21)
[2019-08-02 04:41] LABS: Basophils % 0.2 % (0.0-0.8); Eosinophils % 0.5 % (0.00-10.9); Hematocrit 29.1 VOL% (42.0-52.0); Hemoglobin 9.2 GM/DL (14.0-18.0); Immature Granulocytes % 0.6 %; Immature Granulocytes Absolute 0.05 #; Lymphocytes # 2.2 10*3/uL (1.4-4.0); Lymphocytes % 25.2 % (21.2-54.2); Mean Corpuscular HGB Conc 31.6 GM/DL (32-36); Mean Corpuscular Volume 87.1 FL (87-102); Mean Platelet Volume 9.3 FL (9.6-12.0); Monocytes % 4.1 % (1.7-12.7); Neutrophils % 69.4 % (38.7-73.9); Platelet Count 580 T/CUMM (130-400); Red Blood Count 3.34 MC/CUMM (3.8-5.5); Red Cell Distribution Width 13.5 % (9.3-17.3); White Blood Count 8.6 T/CUMM (4-12)
[2019-08-02] MEDS: INSULIN LISPRO 100 UNIT/ML SUBCUT SCH ×2 (07:22→13:25)
[2019-08-02] MEDS: DOCUSATE SODIUM 100 MG CAPSULE PO SCH (09:17)
[2019-08-02] MEDS: APIXABAN 5 MG TABLET PO SCH (09:17)
[2019-08-02] MEDS: buPROPion 75 MG TABLET PO SCH (09:17)
[2019-08-02] MEDS: PANTOPRAZOLE 40 MG TABLET PO SCH (09:17)
[2019-08-02] MEDS: ASPIRIN EC 81 MG TABLET PO SCH (09:17)
[2019-08-02] MEDS: carvediloL 3.125 MG TABLET PO SCH (09:18)
[2019-08-02 16:48] VITALS: BP 127/78
[2019-08-09] MEDS ORDERED: APIXABAN 5 MG TABLET PO SCH (09:00)
== END 2019-08-02 16:55 | disposition home health service (06) | DRG 176 ==
LOC: EDUNIT# → EDBD → N.ED 13:40 → N.EDINP 16:29 → N.TELES 17:57
PROVIDERS: ADMIT Family Medicine; ATTEND Family Medicine

== ENCOUNTER 2020-04-29 13:59 | Observation (INO) ==
[2020-04-29] MEDS ORDERED: METOPROLOL TARTRATE 5 MG/5 ML VIAL IV STA (14:12)
[2020-04-29] MEDS ORDERED: ASPIRIN 325 MG TABLET PO STA (14:12)
[2020-04-29 14:31] LABS: Basophils % 0.8 % (0.0-0.8); Eosinophils % 0.2 % (0.00-10.9); Hematocrit 40.1 VOL% (42.0-52.0); Hemoglobin 12.9 GM/DL (14.0-18.0); Immature Granulocytes % 0.4 %; Immature Granulocytes Absolute 0.02 #; Lymphocytes # 1.4 10*3/uL (1.4-4.0); Lymphocytes % 26.9 % (21.2-54.2); Mean Corpuscular HGB Conc 32.2 GM/DL (32-36); Mean Corpuscular Volume 85.3 FL (87-102); Mean Platelet Volume 10.5 FL (9.6-12.0); Monocytes % 6.4 % (1.7-12.7); Neutrophils % 65.3 % (38.7-73.9); Platelet Count 241 T/CUMM (130-400); Red Cell Distribution Width 13.7 % (9.3-17.3); White Blood Count 5.3 T/CUMM (4-12)
[2020-04-29 14:59] LABS: Alanine Aminotransferase 35 U/L (16-61); Albumin 3.9 G/DL (3.4-5.0); Alkaline Phosphatase 101 U/L (45-117); Aspartate Amino Transferase 24 U/L (0-37); Bilirubin,Total < 0.39 MG/DL (0.2-1.0); Blood Urea Nitrogen 17 MG/DL (7-18); Calcium 9.2 MG/DL (8.5-10.1); Estimated Glom Filtration Rate 102 ML/MIN; Glucose 119 MG/DL (74-106); Osmolality,Calculated 283.3 MOS/KG (273-304); Total Protein 7.4 G/DL (6.4-8.3)
[2020-04-29 16:21] LABS: PT Patient Result 10.9 SECS (9.8-11.9); Partial Thromboplastin Time 28.3 SECS (23.9-33.8)
[2020-04-29] MEDS ORDERED: DEXTROSE 50% 25 GM/50 ML VIAL IV PRN (17:32)
[2020-04-29] MEDS ORDERED: ACETAMINOPHEN 325 MG TABLET PO PRN (17:32)
[2020-04-29] MEDS ORDERED: ONDANSETRON 4 MG/2 ML VIAL IV PRN (17:32)
[2020-04-29] MEDS ORDERED: GLUCAGON 1 MG VIAL IM PRN (17:32)
[2020-04-29] MEDS ORDERED: INFLUENZA VIRUS VACCINE 0.5 ML SYRINGE IM ONE (17:48)
[2020-04-29] MEDS ORDERED: PNEUMOCOCCAL VACCINE (23 VALENT) 0.5 ML VIAL IM ONE (17:51)
[2020-04-29] MEDS: INSULIN LISPRO 100 UNIT/ML SUBCUT SCH ×2 (17:58→20:19)
[2020-04-29] MEDS: SODIUM CHLORIDE 0.9% 1,000 ML IV SCH (18:08)
[2020-04-29] MEDS: DOCUSATE SODIUM 100 MG CAPSULE PO SCH (20:18)
[2020-04-29] MEDS ORDERED: ENOXAPARIN 40 MG/0.4 ML SYRINGE SUBCUT SCH (21:00)
[2020-04-30] MEDS: SODIUM CHLORIDE 0.9% 1,000 ML IV SCH ×2 (02:18→09:45)
[2020-04-30] MEDS ORDERED: NITROGLYCERIN SL 0.4 MG TABLET SL PRN ×2 (03:05→11:01)
[2020-04-30] MEDS ORDERED: MORPHINE 4 MG/1 ML VIAL IV PRN (03:07)
[2020-04-30] MEDS: INSULIN LISPRO 100 UNIT/ML SUBCUT SCH ×4 (07:50→20:43)
[2020-04-30] MEDS: DOCUSATE SODIUM 100 MG CAPSULE PO SCH ×2 (08:39→20:43)
[2020-04-30] MEDS: PANTOPRAZOLE 40 MG TABLET PO SCH (08:39)
[2020-04-30] MEDS ORDERED: ALUM/MAG/SIMETH/LIDO VISC 1:1 30 ML BOTTLE PO ONE (11:06)
[2020-04-30] MEDS ORDERED: KETOROLAC 30 MG/1 ML VIAL IV ONE (11:06)
[2020-04-30] MEDS: lisinopriL 10 MG TABLET PO SCH ×2 (11:59→20:43)
[2020-04-30] MEDS: ACETAMINOPHEN 325 MG TABLET PO SCH ×2 (11:59→20:43)
[2020-04-30] MEDS: carvediloL 6.25 MG TABLET PO SCH ×2 (11:59→20:43)
[2020-04-30] MEDS: GABAPENTIN 100 MG CAPSULE PO SCH ×3 (11:59→20:43)
[2020-04-30] MEDS: amLODIPine 2.5 MG TABLET PO SCH (11:59)
[2020-04-30] MEDS: SERTRALINE 25 MG TABLET PO SCH (14:41)
[2020-04-30] MEDS ORDERED: APIXABAN 5 MG TABLET PO SCH (15:00)
[2020-04-30] MEDS: CLOPIDOGREL 75 MG TABLET PO SCH (17:00)
[2020-04-30] MEDS ORDERED: ATORVASTATIN 40 MG TABLET PO SCH (19:00)
[2020-04-30] MEDS: APIXABAN 5 MG TABLET PO SCH (20:43)
[2020-05-01 05:33] LABS: Basophils % 0.8 % (0.0-0.8); Hematocrit 37.3 VOL% (42.0-52.0); Hemoglobin 11.8 GM/DL (14.0-18.0); Lymphocytes # 2.1 10*3/uL (1.4-4.0); Lymphocytes % 53.2 % (21.2-54.2); Mean Corpuscular HGB Conc 31.6 GM/DL (32-36); Mean Corpuscular Volume 87.1 FL (87-102); Mean Platelet Volume 10.5 FL (9.6-12.0); Monocytes % 11.7 % (1.7-12.7); Neutrophils % 33.3 % (38.7-73.9); Platelet Count 225 T/CUMM (130-400); Red Blood Count 4.28 MC/CUMM (3.8-5.5); Red Cell Distribution Width 13.8 % (9.3-17.3); White Blood Count 3.9 T/CUMM (4-12)
[2020-05-01 05:48] LABS: Calcium 8.4 MG/DL (8.5-10.1)
[2020-05-01 06:02] LABS: Eosinophils 1 % (0-10); Lymphocytes 56 % (20-55); Platelet Estimate Adequate; Segmented Neutrophils 38 % (50-85); Total Cells Counted 100
[2020-05-01 06:03] LABS: Atypical Lymphocytes Few; Hypochromasia 1+; Microcytosis 1+; Ovalocytes Slight
[2020-05-01] MEDS: INSULIN LISPRO 100 UNIT/ML SUBCUT SCH ×2 (08:25→11:43)
[2020-05-01] MEDS: GABAPENTIN 100 MG CAPSULE PO SCH (09:03)
[2020-05-01] MEDS: lisinopriL 10 MG TABLET PO SCH (09:03)
[2020-05-01] MEDS: PANTOPRAZOLE 40 MG TABLET PO SCH (09:03)
[2020-05-01] MEDS: ACETAMINOPHEN 325 MG TABLET PO SCH (09:03)
[2020-05-01] MEDS: amLODIPine 2.5 MG TABLET PO SCH (09:03)
[2020-05-01] MEDS: SERTRALINE 25 MG TABLET PO SCH (09:04)
[2020-05-01] MEDS: CLOPIDOGREL 75 MG TABLET PO SCH (09:04)
[2020-05-01] MEDS: APIXABAN 5 MG TABLET PO SCH (09:04)
[2020-05-01] MEDS: DOCUSATE SODIUM 100 MG CAPSULE PO SCH (09:04)
[2020-05-01] MEDS: carvediloL 6.25 MG TABLET PO SCH (09:04)
[2020-05-01 09:23] VITALS: BP 127/70
== END 2020-05-01 11:35 | disposition home or self-care (01) ==
LOC: EDBD → EDUNIT# → N.EDINP 13:59 → N.ED 13:59 → N.TELEN 17:25
PROVIDERS: ADMIT Family Medicine; ATTEND Family Medicine

== ENCOUNTER 2020-06-08 19:44 | Observation (INO) ==
[2020-06-08] MEDS ORDERED: SODIUM CHLORIDE 0.9% 1,000 ML IV STA (20:07)
[2020-06-08 20:14] LABS: Basophils % 0.5 % (0.0-0.8); Eosinophils # 0.1 10*3/uL (0.0-0.87); Eosinophils % 1.7 % (0.00-10.9); Hematocrit 40.2 VOL% (42.0-52.0); Hemoglobin 12.6 GM/DL (14.0-18.0); Immature Granulocytes % 0.5 %; Immature Granulocytes Absolute 0.03 #; Lymphocytes # 2.7 10*3/uL (1.4-4.0); Lymphocytes % 47.5 % (21.2-54.2); Mean Corpuscular HGB Conc 31.3 GM/DL (32-36); Monocytes % 8.7 % (1.7-12.7); Neutrophils % 41.1 % (38.7-73.9); Platelet Count 260 T/CUMM (130-400); Red Blood Count 4.62 MC/CUMM (3.8-5.5); Red Cell Distribution Width 14.6 % (9.3-17.3); White Blood Count 5.7 T/CUMM (4-12)
[2020-06-08 20:32] LABS: Alanine Aminotransferase 34 U/L (16-61); Albumin 3.8 G/DL (3.4-5.0); Alkaline Phosphatase 89 U/L (45-117); Aspartate Amino Transferase 15 U/L (0-37); Bilirubin,Total < 0.39 MG/DL (0.2-1.0); Blood Urea Nitrogen 26 MG/DL (7-18); Calcium 8.3 MG/DL (8.5-10.1); Estimated Glom Filtration Rate 69 ML/MIN; Glucose 90 MG/DL (74-106); Osmolality,Calculated 283.4 MOS/KG (273-304); Total Protein 7.2 G/DL (6.4-8.3)
[2020-06-08 20:55] LABS: Bacteria,Urine Occasional /HPF (Few); Bilirubin,Urine Negative (Negative); Blood, Urine Negative (Negative); Glucose,Urine (UA) Negative (Negative); Hyaline Casts,Urine 69 /LPF (0-3); Ketones,Urine Negative (Negative); Mucus,Urine Many /LPF (Occasional); Nitrite,Urine Negative (Negative); Protein,Urine 30 MG/DL; Squamous Epithelial Cell,Urine Occasional /HPF (0-10); Urine Appearance Slightly Hazy (Clear); Urine Color Amber (Yellow); Urine Specific Gravity 1.029 (1.001-1.035); Urine Urobilinogen < 2.0 EU/DL (0.2-1.0)
[2020-06-08] MEDS ORDERED: ONDANSETRON 4 MG/2 ML VIAL IV PRN (21:21)
[2020-06-09] MEDS: SODIUM CHLORIDE 0.9% 1,000 ML IV SCH ×2 (00:03→10:05)
[2020-06-09 03:00] LABS: Basophils % 0.4 % (0.0-0.8); Eosinophils # 0.1 10*3/uL (0.0-0.87); Hematocrit 39.4 VOL% (42.0-52.0); Hemoglobin 12.3 GM/DL (14.0-18.0); Immature Granulocytes % 0.2 %; Immature Granulocytes Absolute 0.01 #; Lymphocytes # 2.8 10*3/uL (1.4-4.0); Lymphocytes % 57.9 % (21.2-54.2); Mean Corpuscular HGB Conc 31.2 GM/DL (32-36); Mean Corpuscular Volume 88.1 FL (87-102); Mean Platelet Volume 9.7 FL (9.6-12.0); Monocytes % 9.4 % (1.7-12.7); Neutrophils % 31.1 % (38.7-73.9); Platelet Count 244 T/CUMM (130-400); Red Blood Count 4.47 MC/CUMM (3.8-5.5); Red Cell Distribution Width 14.3 % (9.3-17.3); White Blood Count 4.9 T/CUMM (4-12)
[2020-06-09 03:21] LABS: Alanine Aminotransferase 29 U/L (16-61); Albumin 3.3 G/DL (3.4-5.0); Alkaline Phosphatase 75 U/L (45-117); Aspartate Amino Transferase 20 U/L (0-37); Bilirubin,Total < 0.39 MG/DL (0.2-1.0); Blood Urea Nitrogen 23 MG/DL (7-18); Calcium 8.3 MG/DL (8.5-10.1); Estimated Glom Filtration Rate 100 ML/MIN; Glucose 91 MG/DL (74-106); Osmolality,Calculated 286.1 MOS/KG (273-304); Total Protein 6.8 G/DL (6.4-8.3)
[2020-06-09 04:22] LABS: Atypical Lymphocytes Few; Eosinophils 2 % (0-10); Lymphocytes 56 % (20-55); Reactive Lymphocytes 1+; Segmented Neutrophils 34 % (50-85); Total Cells Counted 100
[2020-06-09 04:23] LABS: Hypochromasia Slight; Platelet Estimate Normal; Polychromasia Few
[2020-06-09] MEDS ORDERED: PANTOPRAZOLE 40 MG TABLET PO SCH (09:00)
[2020-06-09] MEDS ORDERED: NITROGLYCERIN SL 0.4 MG TABLET SL PRN (10:53)
[2020-06-09] MEDS ORDERED: ALUM/MAG/SIMETH/LIDO VISC 1:1 30 ML BOTTLE PO ONE (12:08)
[2020-06-09 14:19] VITALS: BP 137/67
[2020-06-09] MEDS ORDERED: ATORVASTATIN 40 MG TABLET PO SCH (21:00)
[2020-06-09] MEDS ORDERED: APIXABAN 5 MG TABLET PO SCH (21:00)
[2020-06-10] MEDS ORDERED: CLOPIDOGREL 75 MG TABLET PO SCH (09:00)
== END 2020-06-09 14:13 | disposition home or self-care (01) ==
LOC: N.ED 19:44 → N.EDINP 19:44 → N.TELES 23:18
PROVIDERS: ADMIT Family Medicine; ATTEND Family Medicine

== ENCOUNTER 2020-07-01 18:28 | Observation (INO) ==
[2020-07-01] MEDS ORDERED: ASPIRIN 325 MG TABLET PO STA (19:50)
[2020-07-01 19:59] LABS: Basophils % 0.3 % (0.0-0.8); Eosinophils % 0.2 % (0.00-10.9); Hematocrit 45.3 VOL% (42.0-52.0); Hemoglobin 14.4 GM/DL (14.0-18.0); Immature Granulocytes % 0.5 %; Immature Granulocytes Absolute 0.03 #; Lymphocytes # 1.7 10*3/uL (1.4-4.0); Lymphocytes % 25.7 % (21.2-54.2); Mean Corpuscular HGB Conc 31.8 GM/DL (32-36); Mean Corpuscular Volume 87.8 FL (87-102); Mean Platelet Volume 10.3 FL (9.6-12.0); Monocytes % 13.1 % (1.7-12.7); Neutrophils % 60.2 % (38.7-73.9); Platelet Count 262 T/CUMM (130-400); Red Blood Count 5.16 MC/CUMM (3.8-5.5); Red Cell Distribution Width 14.5 % (9.3-17.3); White Blood Count 6.5 T/CUMM (4-12)
[2020-07-01 20:10] LABS: Alanine Aminotransferase 32 U/L (16-61); Alkaline Phosphatase 88 U/L (45-117); Aspartate Amino Transferase 19 U/L (0-37); Bilirubin,Total < 0.39 MG/DL (0.2-1.0); Blood Urea Nitrogen 12 MG/DL (7-18); Calcium 8.6 MG/DL (8.5-10.1); Estimated Glom Filtration Rate 84 ML/MIN; Glucose 144 MG/DL (74-106); Total Protein 8.4 G/DL (6.4-8.3)
[2020-07-01 20:15] LABS: Ferritin 72.4 ng/ml (26-388)
[2020-07-01] MEDS ORDERED: MORPHINE 4 MG/1 ML VIAL IV STA (20:27)
[2020-07-01] MEDS ORDERED: HYDROmorphone 2 MG/1 ML VIAL IV PRN (20:49)
[2020-07-01] MEDS ORDERED: ONDANSETRON 4 MG/2 ML VIAL IV PRN (20:49)
[2020-07-01] MEDS ORDERED: DEXTROSE 50% 25 GM/50 ML VIAL IV PRN (20:49)
[2020-07-01] MEDS ORDERED: GLUCAGON 1 MG VIAL IM PRN (20:49)
[2020-07-01] MEDS ORDERED: NITROGLYCERIN SL 0.4 MG TABLET SL PRN (20:53)
[2020-07-01] MEDS: ACETAMINOPHEN 325 MG TABLET PO PRN (21:28)
[2020-07-01] MEDS: carvediloL 3.125 MG TABLET PO SCH (23:31)
[2020-07-01] MEDS: APIXABAN 5 MG TABLET PO SCH (23:31)
[2020-07-01] MEDS: DOCUSATE SODIUM 100 MG CAPSULE PO SCH (23:31)
[2020-07-02] MEDS: ACETAMINOPHEN 325 MG TABLET PO PRN ×2 (04:20→14:05)
[2020-07-02 06:05] LABS: Basophils % 0.4 % (0.0-0.8); Hematocrit 45.4 VOL% (42.0-52.0); Hemoglobin 14.2 GM/DL (14.0-18.0); Immature Granulocytes % 0.2 %; Immature Granulocytes Absolute 0.01 #; Lymphocytes # 1.2 10*3/uL (1.4-4.0); Mean Corpuscular HGB Conc 31.3 GM/DL (32-36); Mean Corpuscular Volume 88.2 FL (87-102); Mean Platelet Volume 10.4 FL (9.6-12.0); Monocytes % 12.5 % (1.7-12.7); Neutrophils % 63.9 % (38.7-73.9); Platelet Count 241 T/CUMM (130-400); Red Blood Count 5.15 MC/CUMM (3.8-5.5); Red Cell Distribution Width 14.4 % (9.3-17.3); White Blood Count 5.1 T/CUMM (4-12)
[2020-07-02 06:27] LABS: Albumin 3.8 G/DL (3.4-5.0); Bilirubin,Total 0.4 MG/DL (0.2-1.0); Calcium 8.3 MG/DL (8.5-10.1)
[2020-07-02] MEDS: PANTOPRAZOLE 40 MG TABLET PO SCH (08:31)
[2020-07-02] MEDS: CLOPIDOGREL 75 MG TABLET PO SCH (08:31)
[2020-07-02] MEDS: APIXABAN 5 MG TABLET PO SCH ×2 (08:31→21:31)
[2020-07-02] MEDS: carvediloL 3.125 MG TABLET PO SCH ×2 (08:32→21:31)
[2020-07-02] MEDS: FLUTICASONE 50 MCG NASAL SPRAY 16 GM BOTTLE BOTH NARES SCH (08:32)
[2020-07-02] MEDS: DOCUSATE SODIUM 100 MG CAPSULE PO SCH ×2 (08:32→21:31)
[2020-07-02] MEDS ORDERED: POTASSIUM CHLORIDE 20 MEQ TABLET PO PRN (09:35)
[2020-07-02] MEDS ORDERED: MAGNESIUM SULF RIDER 4 GM in PREMIX 1 EACH IV PRN (09:35)
[2020-07-02] MEDS ORDERED: MAGNESIUM SULF RIDER 2 GM in PREMIX 1 EACH IV PRN (09:35)
[2020-07-02] MEDS ORDERED: cefTRIAXone 1,000 MG in SODIUM CHLORIDE 0.9% 100 ML IV SCH (10:00)
[2020-07-02] MEDS: oxyCODONE/ACETAMINOPHEN 5-325 MG TABLET PO PRN ×2 (10:43→22:21)
[2020-07-02] MEDS: DEXAMETHASONE 4 MG/1 ML VIAL IV SCH (10:43)
[2020-07-02] MEDS: FAMOTIDINE 20 MG TABLET PO SCH ×2 (10:43→21:31)
[2020-07-02] MEDS: DOXYCYCLINE HYCLATE 100 MG CAPSULE PO SCH ×2 (10:43→21:32)
[2020-07-02] MEDS: INSULIN REGULAR 100 UNIT/ML SUBCUT SCH ×3 (12:31→20:05)
[2020-07-02] MEDS ORDERED: ATORVASTATIN 40 MG TABLET PO SCH (19:00)
[2020-07-03] MEDS: ACETAMINOPHEN 325 MG TABLET PO PRN (06:52)
[2020-07-03 07:08] LABS: Basophils % 0.2 % (0.0-0.8); Hematocrit 47.1 VOL% (42.0-52.0); Hemoglobin 14.6 GM/DL (14.0-18.0); Immature Granulocytes % 0.2 %; Immature Granulocytes Absolute 0.01 #; Lymphocytes # 1.2 10*3/uL (1.4-4.0); Lymphocytes % 26.2 % (21.2-54.2); Mean Corpuscular Volume 88.9 FL (87-102); Mean Platelet Volume 10.4 FL (9.6-12.0); Monocytes % 10.1 % (1.7-12.7); Neutrophils % 63.3 % (38.7-73.9); Platelet Count 226 T/CUMM (130-400); Red Cell Distribution Width 14.3 % (9.3-17.3); White Blood Count 4.5 T/CUMM (4-12)
[2020-07-03 07:12] LABS: Alanine Aminotransferase 26 U/L (16-61); Albumin 3.6 G/DL (3.4-5.0); Alkaline Phosphatase 78 U/L (45-117); Aspartate Amino Transferase 19 U/L (0-37); Bilirubin,Total < 0.39 MG/DL (0.2-1.0); Blood Urea Nitrogen 20 MG/DL (7-18); Calcium 8.6 MG/DL (8.5-10.1); Estimated Glom Filtration Rate 115 ML/MIN; Glucose 102 MG/DL (74-106)
[2020-07-03] MEDS: CLOPIDOGREL 75 MG TABLET PO SCH (09:35)
[2020-07-03] MEDS: FAMOTIDINE 20 MG TABLET PO SCH (09:35)
[2020-07-03] MEDS: INSULIN REGULAR 100 UNIT/ML SUBCUT SCH ×2 (09:35→11:11)
[2020-07-03] MEDS: PANTOPRAZOLE 40 MG TABLET PO SCH (09:35)
[2020-07-03] MEDS: FLUTICASONE 50 MCG NASAL SPRAY 16 GM BOTTLE BOTH NARES SCH (09:35)
[2020-07-03] MEDS: DOCUSATE SODIUM 100 MG CAPSULE PO SCH (09:35)
[2020-07-03] MEDS: APIXABAN 5 MG TABLET PO SCH (09:35)
[2020-07-03] MEDS: carvediloL 3.125 MG TABLET PO SCH (09:35)
[2020-07-03] MEDS: DEXAMETHASONE 4 MG/1 ML VIAL IV SCH (09:35)
[2020-07-03] MEDS: DOXYCYCLINE HYCLATE 100 MG CAPSULE PO SCH (11:24)
[2020-07-03 11:39] VITALS: BP 126/76
== END 2020-07-03 13:20 | disposition home or self-care (01) ==
LOC: N.ED 18:28 → N.EDINP 18:28 → N.2E 21:17
PROVIDERS: ADMIT Family Medicine; ATTEND Family Medicine

== ENCOUNTER 2020-07-12 15:51 | Inpatient (IN) ==
[2020-07-12 16:52] LABS: Basophils % 0.4 % (0.0-0.8); Eosinophils # 0.2 10*3/uL (0.0-0.87); Eosinophils % 2.5 % (0.00-10.9); Hematocrit 41.2 VOL% (42.0-52.0); Hemoglobin 13.2 GM/DL (14.0-18.0); Immature Granulocytes % 1.8 %; Immature Granulocytes Absolute 0.14 #; Lymphocytes # 1.7 10*3/uL (1.4-4.0); Mean Corpuscular Volume 85.8 FL (87-102); Mean Platelet Volume 9.4 FL (9.6-12.0); Monocytes % 9.8 % (1.7-12.7); Neutrophils % 63.5 % (38.7-73.9); Platelet Count 403 T/CUMM (130-400); Red Cell Distribution Width 13.9 % (9.3-17.3); White Blood Count 7.7 T/CUMM (4-12)
[2020-07-12 17:04] LABS: Calcium 8.3 MG/DL (8.5-10.1); Osmolality,Calculated 277.1 MOS/KG (273-304); Potassium 4.3 MMOL/L (3.5-5.1)
[2020-07-12 17:17] LABS: PT Patient Result 10.3 SECS (9.8-11.9); Partial Thromboplastin Time 26.7 SECS (23.9-33.8)
[2020-07-12] MEDS ORDERED: LEVOFLOXACIN INJ 500 MG in PREMIX 1 EACH IV STA (17:18)
[2020-07-12] MEDS ORDERED: DEXTROSE 50% 25 GM/50 ML VIAL IV PRN (17:54)
[2020-07-12] MEDS ORDERED: GLUCAGON 1 MG VIAL IM PRN (17:54)
[2020-07-12] MEDS ORDERED: ONDANSETRON 4 MG/2 ML VIAL IV PRN (17:54)
[2020-07-12] MEDS ORDERED: ACETAMINOPHEN 325 MG TABLET PO PRN (17:54)
[2020-07-12] MEDS ORDERED: ZIPRASIDONE 20 MG CAPSULE PO PRN ×2 (20:44→21:12)
[2020-07-12] MEDS: APIXABAN 2.5 MG TABLET PO SCH (21:14)
[2020-07-12] MEDS: carvediloL 3.125 MG TABLET PO SCH (21:16)
[2020-07-13] MEDS: ATORVASTATIN 40 MG TABLET PO SCH (09:43)
[2020-07-13] MEDS: APIXABAN 2.5 MG TABLET PO SCH ×2 (09:43→20:00)
[2020-07-13] MEDS: PANTOPRAZOLE 40 MG TABLET PO SCH (09:43)
[2020-07-13] MEDS: CLOPIDOGREL 75 MG TABLET PO SCH (09:43)
[2020-07-13] MEDS: INSULIN REGULAR 100 UNIT/ML SUBCUT SCH ×2 (09:43→16:43)
[2020-07-13] MEDS: carvediloL 3.125 MG TABLET PO SCH ×2 (09:43→16:43)
[2020-07-13] MEDS ORDERED: MAGNESIUM SULF RIDER 4 GM in PREMIX 1 EACH IV PRN (14:25)
[2020-07-13] MEDS ORDERED: POTASSIUM CHLORIDE RIDER 10 MEQ in PREMIX 1 EACH IV PRN (14:25)
[2020-07-13] MEDS ORDERED: MAGNESIUM SULF RIDER 2 GM in PREMIX 1 EACH IV PRN (14:25)
[2020-07-13] MEDS ORDERED: POTASSIUM CHLORIDE 20 MEQ TABLET PO PRN (14:25)
[2020-07-13] MEDS ORDERED: ENOXAPARIN 40 MG/0.4 ML SYRINGE SUBCUT SCH (14:30)
[2020-07-13] MEDS: DEXAMETHASONE 4 MG/1 ML VIAL IV SCH (15:15)
[2020-07-13] MEDS: FAMOTIDINE 20 MG TABLET PO SCH ×2 (15:15→20:00)
[2020-07-13] MEDS: ZINC GLUCONATE 50 MG TABLET PO SCH (15:15)
[2020-07-13] MEDS: ASCORBIC ACID 500 MG TABLET PO SCH ×2 (15:15→20:00)
[2020-07-13] MEDS: cefTRIAXone 1,000 MG in SYRINGE 1 EACH IV SCH (17:23)
[2020-07-13] MEDS ORDERED: REMDESIVIR 200 MG in SODIUM CHLORIDE 0.9% 210 ML IV ONE (18:00)
[2020-07-14 04:24] LABS: Basophils % 0.1 % (0.0-0.8); Hematocrit 43.2 VOL% (42.0-52.0); Hemoglobin 13.7 GM/DL (14.0-18.0); Immature Granulocytes % 1.5 %; Immature Granulocytes Absolute 0.11 #; Lymphocytes # 0.8 10*3/uL (1.4-4.0); Lymphocytes % 10.8 % (21.2-54.2); Mean Corpuscular HGB Conc 31.7 GM/DL (32-36); Mean Corpuscular Volume 85.7 FL (87-102); Mean Platelet Volume 9.2 FL (9.6-12.0); Monocytes % 5.1 % (1.7-12.7); Neutrophils % 82.5 % (38.7-73.9); Platelet Count 422 T/CUMM (130-400); Red Blood Count 5.04 MC/CUMM (3.8-5.5); Red Cell Distribution Width 13.4 % (9.3-17.3); White Blood Count 7.4 T/CUMM (4-12)
[2020-07-14 05:03] LABS: Albumin 2.9 G/DL (3.4-5.0); Calcium 9.4 MG/DL (8.5-10.1); Osmolality,Calculated 272.8 MOS/KG (273-304); Potassium 4.9 MMOL/L (3.5-5.1); Total Protein 8.2 G/DL (6.4-8.3)
[2020-07-14] MEDS: carvediloL 3.125 MG TABLET PO SCH ×2 (08:45→17:13)
[2020-07-14] MEDS: CLOPIDOGREL 75 MG TABLET PO SCH (09:45)
[2020-07-14] MEDS: APIXABAN 2.5 MG TABLET PO SCH ×2 (09:45→20:31)
[2020-07-14] MEDS: PANTOPRAZOLE 40 MG TABLET PO SCH (09:45)
[2020-07-14] MEDS: ATORVASTATIN 40 MG TABLET PO SCH (09:45)
[2020-07-14] MEDS: DEXAMETHASONE 4 MG/1 ML VIAL IV SCH (09:45)
[2020-07-14] MEDS: ZINC GLUCONATE 50 MG TABLET PO SCH (09:45)
[2020-07-14] MEDS: ASCORBIC ACID 500 MG TABLET PO SCH ×2 (09:45→20:31)
[2020-07-14] MEDS: FAMOTIDINE 20 MG TABLET PO SCH ×2 (09:45→20:31)
[2020-07-14] MEDS: INSULIN REGULAR 100 UNIT/ML SUBCUT SCH ×2 (09:45→17:13)
[2020-07-14] MEDS: REMDESIVIR 100 MG in SODIUM CHLORIDE 0.9% 100 ML IV SCH (09:48)
[2020-07-14] MEDS: cefTRIAXone 1,000 MG in SYRINGE 1 EACH IV SCH (17:13)
[2020-07-14] MEDS ORDERED: INSULIN REGULAR 100 UNIT/ML SUBCUT SCH (21:00)
[2020-07-14] MEDS ORDERED: INSULIN REGULAR 100 UNIT/ML SUBCUT ONE (22:29)
[2020-07-15] MEDS ORDERED: INSULIN REGULAR 100 UNIT/ML SUBCUT SCH (07:30)
[2020-07-15] MEDS: carvediloL 3.125 MG TABLET PO SCH ×2 (08:16→16:12)
[2020-07-15] MEDS: APIXABAN 2.5 MG TABLET PO SCH ×2 (08:16→21:32)
[2020-07-15] MEDS: DEXAMETHASONE 4 MG/1 ML VIAL IV SCH (08:16)
[2020-07-15] MEDS: ATORVASTATIN 40 MG TABLET PO SCH (08:17)
[2020-07-15] MEDS: ASCORBIC ACID 500 MG TABLET PO SCH ×2 (08:17→21:31)
[2020-07-15] MEDS: PANTOPRAZOLE 40 MG TABLET PO SCH (08:17)
[2020-07-15] MEDS: CLOPIDOGREL 75 MG TABLET PO SCH (08:17)
[2020-07-15] MEDS: FAMOTIDINE 20 MG TABLET PO SCH ×2 (08:17→21:31)
[2020-07-15] MEDS: ZINC GLUCONATE 50 MG TABLET PO SCH (08:17)
[2020-07-15] MEDS: INSULIN REGULAR 100 UNIT/ML SUBCUT SCH ×4 (08:26→21:48)
[2020-07-15] MEDS: REMDESIVIR 100 MG in SODIUM CHLORIDE 0.9% 100 ML IV SCH (09:52)
[2020-07-15] MEDS: cefTRIAXone 1,000 MG in SYRINGE 1 EACH IV SCH (17:37)
[2020-07-15] MEDS ORDERED: INSULIN REGULAR 100 UNIT/ML SUBCUT ONE (18:21)
[2020-07-16 05:32] LABS: Basophils % 0.2 % (0.0-0.8); Hemoglobin 14.1 GM/DL (14.0-18.0); Immature Granulocytes % 1.4 %; Immature Granulocytes Absolute 0.18 #; Lymphocytes # 1.7 10*3/uL (1.4-4.0); Lymphocytes % 13.1 % (21.2-54.2); Mean Corpuscular Volume 84.1 FL (87-102); Mean Platelet Volume 9.6 FL (9.6-12.0); Monocytes % 4.7 % (1.7-12.7); Neutrophils % 80.6 % (38.7-73.9); Platelet Count 454 T/CUMM (130-400); Red Blood Count 5.23 MC/CUMM (3.8-5.5); Red Cell Distribution Width 13.5 % (9.3-17.3); White Blood Count 13.2 T/CUMM (4-12)
[2020-07-16 05:45] LABS: Alanine Aminotransferase 95 U/L (16-61); Albumin 3.1 G/DL (3.4-5.0); Alkaline Phosphatase 102 U/L (45-117); Aspartate Amino Transferase 11 U/L (0-37); Bilirubin,Total < 0.39 MG/DL (0.2-1.0); Blood Urea Nitrogen 29 MG/DL (7-18); Calcium 9.5 MG/DL (8.5-10.1); Carbon Dioxide 24 MMOL/L (21-32); Estimated Glom Filtration Rate 91 ML/MIN; Glucose 394 MG/DL (74-106); Osmolality,Calculated 287.4 MOS/KG (273-304); Potassium 4.6 MMOL/L (3.5-5.1); Sodium 133 MMOL/L (136-145)
[2020-07-16] MEDS: REMDESIVIR 100 MG in SODIUM CHLORIDE 0.9% 100 ML IV SCH (10:03)
[2020-07-16] MEDS: DEXAMETHASONE 4 MG/1 ML VIAL IV SCH (10:04)
[2020-07-16] MEDS: carvediloL 3.125 MG TABLET PO SCH ×2 (10:04→17:25)
[2020-07-16] MEDS: INSULIN REGULAR 100 UNIT/ML SUBCUT SCH ×4 (10:04→20:40)
[2020-07-16] MEDS: CLOPIDOGREL 75 MG TABLET PO SCH (10:05)
[2020-07-16] MEDS: ASCORBIC ACID 500 MG TABLET PO SCH ×2 (10:05→20:03)
[2020-07-16] MEDS: APIXABAN 2.5 MG TABLET PO SCH ×2 (10:05→20:04)
[2020-07-16] MEDS: ZINC GLUCONATE 50 MG TABLET PO SCH (10:05)
[2020-07-16] MEDS: FAMOTIDINE 20 MG TABLET PO SCH ×2 (10:05→20:03)
[2020-07-16] MEDS: ATORVASTATIN 40 MG TABLET PO SCH (10:05)
[2020-07-16] MEDS: PANTOPRAZOLE 40 MG TABLET PO SCH (10:05)
[2020-07-16] MEDS: INSULIN GLARGINE 100 UNIT/ML SUBCUT SCH (10:42)
[2020-07-16] MEDS: cefTRIAXone 1,000 MG in SYRINGE 1 EACH IV SCH (17:25)
[2020-07-16] MEDS ORDERED: INSULIN REGULAR 100 UNIT/ML SUBCUT ONE (18:19)
[2020-07-17 07:53] VITALS: BP 147/87
[2020-07-17] MEDS: INSULIN GLARGINE 100 UNIT/ML SUBCUT SCH (08:38)
[2020-07-17] MEDS: DEXAMETHASONE 4 MG/1 ML VIAL IV SCH (08:38)
[2020-07-17] MEDS: INSULIN REGULAR 100 UNIT/ML SUBCUT SCH (08:38)
[2020-07-17] MEDS: ATORVASTATIN 40 MG TABLET PO SCH (08:39)
[2020-07-17] MEDS: REMDESIVIR 100 MG in SODIUM CHLORIDE 0.9% 100 ML IV SCH (08:39)
[2020-07-17] MEDS: CLOPIDOGREL 75 MG TABLET PO SCH (08:39)
[2020-07-17] MEDS: ASCORBIC ACID 500 MG TABLET PO SCH (08:39)
[2020-07-17] MEDS: APIXABAN 2.5 MG TABLET PO SCH (08:39)
[2020-07-17] MEDS: carvediloL 3.125 MG TABLET PO SCH (08:39)
[2020-07-17] MEDS: PANTOPRAZOLE 40 MG TABLET PO SCH (08:39)
[2020-07-17] MEDS: ZINC GLUCONATE 50 MG TABLET PO SCH (08:39)
[2020-07-17] MEDS: FAMOTIDINE 20 MG TABLET PO SCH (08:39)
== END 2020-07-17 11:22 | disposition home health service (06) | DRG 177 ==
LOC: N.EDINP 15:51 → N.ED 15:51 → N.2E 18:40
PROVIDERS: ADMIT Family Medicine; ATTEND Family Medicine

== ENCOUNTER 2022-01-03 10:57 | Observation (INO) ==
[2022-01-03] MEDS ORDERED: NITROGLYCERIN SL 0.4 MG TABLET SL PRN (11:59)
[2022-01-03] MEDS ORDERED: ASPIRIN 325 MG TABLET PO STA (11:59)
[2022-01-03 12:08] LABS: Basophils % 0.8 % (0.0-0.8); Eosinophils % 0.3 % (0.00-10.9); Hematocrit 39.1 VOL% (42.0-52.0); Hemoglobin 12.5 GM/DL (14.0-18.0); Immature Granulocytes % 0.3 %; Immature Granulocytes Absolute 0.01 #; Lymphocytes # 1.9 10*3/uL (1.4-4.0); Lymphocytes % 51.9 % (21.2-54.2); Mean Corpuscular Volume 88.1 FL (87-102); Mean Platelet Volume 10.4 FL (9.6-12.0); Monocytes # 0.4 10*3/uL (0.11-0.8); Monocytes % 9.9 % (1.7-12.7); Neutrophils % 36.8 % (38.7-73.9); Platelet Count 209 T/CUMM (130-400); Red Blood Count 4.44 MC/CUMM (3.8-5.5); Red Cell Distribution Width 13.9 % (9.3-17.3); White Blood Count 3.6 T/CUMM (4-12)
[2022-01-03 12:31] LABS: Band Neutrophils 2 % (0-10); Eosinophils 1 % (0-10); Lymphocytes 49 % (20-55); Platelet Estimate Adequate; Total Cells Counted 100
[2022-01-03 12:32] LABS: Alanine Aminotransferase 45 U/L (16-61); Albumin 3.4 G/DL (3.4-5.0); Alkaline Phosphatase 89 U/L (45-117); Aspartate Amino Transferase 23 U/L (0-37); Bilirubin,Total < 0.39 MG/DL (0.20-1.00); Blood Urea Nitrogen 15 MG/DL (7-18); Calcium 8.3 MG/DL (8.5-10.1); Carbon Dioxide 24 MMOL/L (21-32); Chloride 110 MMOL/L (98-107); Glucose 132 MG/DL (74-106); Osmolality,Calculated 285.1 MOS/KG (273-304); Potassium 3.7 MMOL/L (3.5-5.1); Sodium 142 MMOL/L (136-145); Total Protein 7.2 G/DL (6.4-8.2)
[2022-01-03 13:51] LABS: Barbiturates Screen,Urine Negative (Negative); Benzodiazepines Screen,Urine Negative (Negative); Cannabinoid Screen,Urine Negative (Negative); Opiate Screen,Urine Negative (Negative); Phencyclidine Screen,Urine Negative (Negative)
[2022-01-03] MEDS ORDERED: ACETAMINOPHEN 325 MG TABLET PO PRN (14:54)
[2022-01-03] MEDS ORDERED: ONDANSETRON 4 MG/2 ML VIAL IV PRN (14:54)
[2022-01-03] MEDS ORDERED: GLUCAGON 1 MG VIAL IM PRN (14:54)
[2022-01-03] MEDS ORDERED: DEXTROSE 10% 250 ML BAG IV PRN (14:58)
[2022-01-03] MEDS: INSULIN LISPRO 100 UNIT/ML SUBCUT SCH ×2 (16:30→22:19)
[2022-01-03] MEDS: carvediloL 6.25 MG TABLET PO SCH (22:19)
[2022-01-03] MEDS: APIXABAN 5 MG TABLET PO SCH (22:19)
[2022-01-03] MEDS: lisinopriL 10 MG TABLET PO SCH (22:19)
[2022-01-04 05:13] LABS: Basophils % 0.7 % (0.0-0.8); Eosinophils # 0.1 10*3/uL (0.0-0.87); Eosinophils % 1.3 % (0.00-10.9); Hematocrit 38.6 VOL% (42.0-52.0); Hemoglobin 12.2 GM/DL (14.0-18.0); Immature Granulocytes % 0.2 %; Immature Granulocytes Absolute 0.01 #; Lymphocytes # 2.5 10*3/uL (1.4-4.0); Lymphocytes % 56.5 % (21.2-54.2); Mean Corpuscular HGB Conc 31.6 GM/DL (32-36); Mean Corpuscular Volume 88.5 FL (87-102); Mean Platelet Volume 10.4 FL (9.6-12.0); Monocytes # 0.4 10*3/uL (0.11-0.8); Neutrophils % 32.3 % (38.7-73.9); Platelet Count 211 T/CUMM (130-400); Red Blood Count 4.36 MC/CUMM (3.8-5.5); Red Cell Distribution Width 13.8 % (9.3-17.3); White Blood Count 4.5 T/CUMM (4-12)
[2022-01-04 05:36] LABS: Eosinophils 2 % (0-10); Lymphocytes 51 % (20-55); Platelet Estimate Adequate; Total Cells Counted 100
[2022-01-04 05:37] LABS: Atypical Lymphocytes Few; Calcium 8.5 MG/DL (8.5-10.1); Hypochromia Slight; Microcytosis Slight; Osmolality,Calculated 286.1 MOS/KG (273-304); Potassium 3.8 MMOL/L (3.5-5.1); Risk Ratio 5.42; VLDL Cholesterol 106.6 MG/DL
[2022-01-04] MEDS: INSULIN LISPRO 100 UNIT/ML SUBCUT SCH (08:42)
[2022-01-04] MEDS ORDERED: CLOPIDOGREL 75 MG TABLET PO SCH (09:00)
[2022-01-04] MEDS ORDERED: GABAPENTIN 100 MG CAPSULE PO SCH (09:00)
[2022-01-04] MEDS ORDERED: ATORVASTATIN 40 MG TABLET PO SCH (09:00)
[2022-01-04] MEDS ORDERED: SERTRALINE 25 MG TABLET PO SCH (09:00)
[2022-01-04] MEDS ORDERED: PANTOPRAZOLE 40 MG TABLET PO SCH (09:00)
[2022-01-04] MEDS ORDERED: ALUM/MAG/SIMETH/LIDO VISC 1:1 30 ML BOTTLE PO ONE (09:04)
[2022-01-04] MEDS: carvediloL 6.25 MG TABLET PO SCH (09:16)
[2022-01-04] MEDS: APIXABAN 5 MG TABLET PO SCH (09:16)
[2022-01-04] MEDS: lisinopriL 10 MG TABLET PO SCH (09:16)
[2022-01-04 09:21] VITALS: BP 137/77
== END 2022-01-04 11:27 | disposition left against medical advice (07) ==
LOC: N.EDINP 10:57 → N.ED 10:57 → N.EDINP 18:00 → N.TELEN 18:17
PROVIDERS: ADMIT Internal Medicine; ATTEND Internal Medicine